=== PATIENT | female | born 1995 | race Caucasian/White ===

== ENCOUNTER 2018-04-08 14:12 | Emergency (ER) | payer MEDICAID ==
[~2018-04-08] VITALS: Ht 160 cm; Wt 83.0 kg
[2018-04-08 14:20] VITALS: BP 138/77
[2018-04-08 15:26] LABS: BASOPHILS % (AUTO) 0.9 % (0.0-2.0); EOSINOPHILS % (AUTO) 3.8 % (1.0-6.0); HEMATOCRIT 43.6 % (36-46); HEMOGLOBIN 14.6 g/dL (12.0-16.0); LYMPHOCYTES # (AUTO) 4.7 K/uL (1.0-4.8); LYMPHOCYTES % (AUTO) 49.8 % (22.0-44.0); MEAN CORPUSCULAR HEMOGLOBIN 26.8 pg (26.0-34.0); MEAN CORPUSCULAR HGB CONC 33.6 G/dL (31.0-37.0); MEAN CORPUSCULAR VOLUME 80 fL (80-100); MONOCYTES # (AUTO) 0.7 K/uL (0.1-1.0); MONOCYTES % (AUTO) 7.8 % (2.0-9.0); NEUTROPHILS # (AUTO) 3.6 K/uL (1.8-7.7); NEUTROPHILS % (AUTO) 37.7 % (40.0-70.0); PLATELET COUNT (AUTO) 327 K/uL (150-450); RED BLOOD CELL COUNT(AUTO) 5.47 MIL/uL (4.00-5.20); RED CELL DISTRIBUTION WIDTH 14.2 % (11.5-14.5)
[2018-04-08] MEDS ORDERED: METO-296 PO (16:29)
[2018-04-08] MEDS ORDERED: MONT10TA21 PO (16:29)
[2018-04-08] MEDS ORDERED: ACET-2247 PO (16:29)
[2018-04-08] MEDS ORDERED: CEFU250T87 PO (16:29)
[2018-04-08] MEDS ORDERED: [UNRECOGNIZED DRUG - CODE] PO (16:29)
[2018-04-08] MEDS ORDERED: TRAN650T2 PO (16:29)
[2018-04-08] MEDS ORDERED: LEVO2.5S4 PO (16:29)
[2018-04-08] MEDS ORDERED: BETA5POW12 PO (16:29)
[2018-04-08] MEDS ORDERED: CELE200 PO (16:29)
[2018-04-08] MEDS ORDERED: PANT40TA25 PO (16:29)
[2018-04-08] MEDS ORDERED: [UNRECOGNIZED DRUG - OTHER] PO (16:35)
== END 2018-04-08 17:11 | disposition home or self-care (01) ==
LOC: EMS 14:14
DX: A90 Dengue fever [classical dengue] (principal)
CPT/HCPCS: 99283

== ENCOUNTER 2018-05-22 22:21 | Emergency (ER) | payer MEDICAID ==
[~2018-05-22] VITALS: Ht 160 cm; Wt 80.9 kg
[~2018-05-22 22:21] MED LIST: ACET-2247 PO; BETA5POW12 PO; CEFU250T87 PO; CELE200 PO; LEVO2.5S4 PO; METO-296 PO; MONT10TA21 PO; PANT40TA25 PO; TRAN650T2 PO; [UNRECOGNIZED DRUG - OTHER] PO
[2018-05-22] MEDS ORDERED: KETOROLAC TROMETHAMINE 30 MG/ML VIAL IM ONE (23:00)
[2018-05-22 23:48] VITALS: BP 138/68
== END 2018-05-22 23:56 | disposition home or self-care (01) ==
LOC: EMS 22:22
DX: S39.012A Strain of muscle, fascia and tendon of lower back, initial encounter (principal); X50.0XXA Overexertion from strenuous movement or load, initial encounter; Y93.89 Activity, other specified; Y92.89 Other specified places as the place of occurrence of the external cause; Y99.8 Other external cause status
CPT/HCPCS: 72100; 96372; 99284; J1885

== ENCOUNTER 2023-12-24 23:23 | Emergency (ER) | payer MEDICAID, OTHER ==
[~2023-12-24] VITALS: Ht 162.6 cm; Wt 95.5 kg
[2023-12-24 23:28] VITALS: BP 142/73; PULSE 77; RESP 18; TEMP 98.5
[2023-12-24 23:45] LABS: COVID AG,FIA SOURCE NASAL SWAB
[2023-12-24] MEDS: GuaiFENesin/D-METHORPHAN [SUGAR-FREE] 200-20MG/10 ML SYRUP UDCUP PO ONE (23:54)
[2023-12-24] MEDS: ACETAMINOPHEN 500 MG TABLET PO ONE (23:54)
[2023-12-24] MEDS: IBUPROFEN 600 MG TABLET PO ONE (23:55)
[2023-12-24 23:56] LABS: BASOPHILS % (AUTO) 0.9 % (0.0-2.0); EOSINOPHILS % (AUTO) 1.5 % (1.0-6.0); HEMATOCRIT 42.9 % (36-46); HEMOGLOBIN 14.2 g/dL (12.0-16.0); LYMPHOCYTES # (AUTO) 4.2 K/uL (1.0-4.8); LYMPHOCYTES % (AUTO) 30.6 % (22.0-44.0); MEAN CORPUSCULAR HEMOGLOBIN 25.4 pg (26.0-34.0); MEAN CORPUSCULAR VOLUME 77 fL (80-100); MONOCYTES % (AUTO) 6.9 % (2.0-9.0); NEUTROPHILS # (AUTO) 8.3 K/uL (1.8-7.7); NEUTROPHILS % (AUTO) 60.1 % (40.0-70.0); PLATELET COUNT (AUTO) 421 K/uL (150-450); RED BLOOD CELL COUNT(AUTO) 5.57 MIL/uL (4.00-5.20); RED CELL DISTRIBUTION WIDTH 15.5 % (11.5-14.5); WHITE BLOOD COUNT (AUTO) 13.8 K/uL (4.5-11.0)
[2023-12-25 00:03] LABS: INFLUENZA TYPE A NEGATIVE FOR TYPE A (NEGATIVE); INFLUENZA TYPE B NEGATIVE FOR TYPE B (NEGATIVE); SARS-COV2 (COVID) ANTIGEN,FIA Negative (Negative)
[2023-12-25 00:05] LABS: ANION GAP 8 mmol/L (8-16); CALCIUM, TOTAL 9.1 mg/dL (8.8-10.5); CARBON DIOXIDE 28 mmol/L (22-29); CHLORIDE 102 mmol/L (98-107); CREATININE 0.65 mg/dL (0.60-1.30); GLOMERULAR FILTR. RATE CALC > 60 mL/min (>60); GLUCOSE,RANDOM 114 mg/dL (70-110); SODIUM SERUM 138 mmol/L (136-145); UREA NITROGEN, BLOOD 10 mg/dL (7-18)
[2023-12-25] MEDS ORDERED: ACET-66 PO (00:32)
[2023-12-25] MEDS ORDERED: GUAIFDM PO (00:32)
[2023-12-25] MEDS ORDERED: IBUP-1554 PO (00:32)
== END 2023-12-25 00:49 | disposition home or self-care (01) ==
LOC: EMS 23:25
DX: J20.9 Acute bronchitis, unspecified (principal); J06.9 Acute upper respiratory infection, unspecified; R07.89 Other chest pain; E03.9 Hypothyroidism, unspecified; Z20.822 Contact with and (suspected) exposure to COVID-19
CPT/HCPCS: 80048; 85025; 87804; 93005; 99284